=== PATIENT | male | born 1990 | race Hispanic/Latino ===

== ENCOUNTER 2020-01-21 13:08 | Emergency (ER) | payer MEDICARE ==
[~2020-01-21] VITALS: Ht 177.8 cm; Wt 88.5 kg
[2020-01-21] MEDS ORDERED: MORPHINE SULFATE 2 MG/ML SYR 1ML IV STA (13:14)
[2020-01-21] MEDS ORDERED: MORPHINE SULFATE INJ 4 MG/ML INJ 1ML ONE (13:38)
--- NOTE | 2020-01-21 14:20 | Diagnostic Imaging Report ---
CT of the abdomen and pelvis, without contrast. History: Right lower quadrant abdominal pain.. Comparison: None available. Technique: Multidetector CT scanning of the abdomen and pelvis was performed from the level of the lung bases to the inferior pubic rami without the use of contrast material. Coronal and sagittal multiplanar reformations were obtained. RADIATION DOSE: Total DLP: 636.47 mGy*cm Dose modulation, iterative reconstruction, and/or weight based adjustment of the mA/kV was utilized to reduce the radiation dose to as low as reasonably achievable. FINDINGS: The visualized intrathoracic contents are unremarkable. The liver is normal in size and attenuation on this noncontrast enhanced examination. The gallbladder is unremarkable. There is no biliary ductal dilatation. The stomach, spleen, pancreas, and bilateral adrenal glands are unremarkable. The kidneys are normal in size and location. There is no evidence for nephrolithiasis or hydronephrosis. There is a punctate calcification identified within the urinary bladder just distal to the right ureterovesicular junction may represent a recently passed stone (axial image 150, coronal image 67). No ureteral stone or significant ureteral dilatation is appreciated. The prostate is unremarkable. The abdominal aorta is normal course and caliber. The IVC is normal in caliber. Please note evaluation the bowel is limited without the use of enteric contrast material. The visualized loops of small and large bowel demonstrate no evidence of obstruction or inflammation. The appendix is not definitively visualized but there is no evidence of inflammation within its expected location the right lower quadrant. There is no ascites or intraperitoneal free air. No abnormally enlarged lymph nodes are identified within the abdomen or pelvis. The osseous structures demonstrate no evidence for acute fracture or destructive process. The extraperitoneal soft tissues are unremarkable. IMPRESSION: Punctate calcification identified within the urinary bladder just distal to the right ureterovesicular junction which may represent a recently passed stone. No evidence for obstructive uropathy. Signed by: Dr. Abraham Rudolph MD on 01/21/2020 2:17 PM
--- NOTE | 2020-01-21 14:35 | Emergency Department Note ---
History of Present Illnes History of Present Illness Chief Complaint: Abdominal Complaints History of Present Illness This is a 29 year old male Chief Complaint Comment Reports umbilical abd pain radiating to RLQ abd with n/v since early this morning when he woke up rates pain 8/10 and arrived via [facility]. Pt seems to be in mild distress. Historian: Employee Benefits Manager/EMS Arrival Mode: [facility] Treatment CATIA DESIGNER: IV Additional Treatment CATIA DESIGNER: 4mg zofran Onset (how long ago): day(s) (1) Location: R FLAK AND RLQ Quality: SHARP Radiation: Denies non-radiation, Denies back, Denies neck, Denies extremity, Denies abdomen, Denies periumbilical, Denies flank, Denies proximal, Denies distal, Denies other Severity: moderate Onset quality: gradual Duration (how long): day(s) (1) Timing of current episode: constant Progression: worsening Chronicity: new Context: Denies recent illness, Denies recent surgery, Denies recent immobilization, Denies recent travel, Denies trauma/injury, Denies new medications, Denies hx of DVT/PE, Denies non-compliance w/ medications, Denies other Relieving factors: none Exacerbating factors: none Associated symptoms: Denies denies other symptoms, Denies confusion, Denies chest pain, Denies cough, Denies diaphoresis, Denies fever/chills, Denies headaches, Denies loss of appetite, Denies malaise, Denies nausea/vomiting, Denies rash, Denies seizure, Denies shortness of breath, Denies syncope, Denies weakness, Denies other Treatments prior to arrival: none Past Medical/Family History Physician Review I have reviewed the patient's past medical and family history. Any updates have been documented here. Past Medical History Recent Fever: No Clinical Suspicion of Infectio: No New/Unexplained Change in Ment: No Past Medical History: None Past Surgical History: None Social History Smoking Cessation: Current every day smoker Counseling Performed: Yes Alcohol Use: Occasional Any Illegal Drug Use: No TB Exposure/Symptoms: No Physically hurt or threatened: No Family History Family history of heart diseas: No Other Any Pre-Existing Lines (PICC,: No Is patient up to date on immun: Yes Last Flu: UTD Last Pneumovax: none Review of Systems Review of Systems Constitutional: Reports no symptoms EENTM: Reports no symptoms Cardiovascular: Reports no symptoms Respiratory: Reports no symptoms Gastrointestinal: Reports as per HPI Genitourinary: Reports no symptoms Musculoskeletal: Reports no symptoms Integumentary: Reports no symptoms Neurological: Reports no symptoms Psychological: Reports no symptoms Endocrine: Reports no symptoms Hematological/Lymphatic: Reports no symptoms Physical Exam Related Data Allergies: Coded Allergies: No Known Allergies (Unverified , 01/21/20) Triage Vital Signs Vital Signs Date Time Temp Pulse Resp B/P (MAP) Pulse Ox O2 Delivery O2 Flow Rate FiO2 01/21/20 13:08 98.4 63 16 148/83 100 Vital signs reviewed: Yes Physical Exam CONSTITUTIONAL Constitutional: Present well-developed, Present well-nourished HENT HENT: Present normocephalic, Present atraumatic, Present oropharynx clear/moist, Present nose normal HENT L/R: Present left ext ear normal, Present right ext ear normal EYES Eyes: Reports PERRL, Reports conjunctivae normal NECK Neck: Present ROM normal PULMONARY Pulmonary: Present effort normal, Present breath sounds normal CARDIOVASCULAR Cardiovascular: Present regular rhythm, Present heart sounds normal, Present capillary refill normal, Present normal rate GASTROINTESTINAL Abdominal: Present soft, Present bowel sounds normal, Present tender (RLQ AND R FLANK) GENITOURINARY Genitourinary: Present exam deferred SKIN Skin: Present warm, Present dry MUSCULOSKELETAL Musculoskeletal: Present ROM normal NEUROLOGICAL Neurological: Present alert, Present oriented x 3, Present no gross motor or sensory deficits PSYCHOLOGICAL Psychological: Present mood/affect normal, Present judgement normal Results Laboratory Lab results reviewed: Yes Imaging Imaging results reviewed: Yes Assessment & Plan Medical Decision Making MDM KIDNEY STONE APPENDICITIS Reassessment Reassessment time: 14:33 Reassessment BETTER Assessment & Plan Final Impression: (1) Abdominal pain, right lower quadrant (2) Renal colic Depart Disposition: HOME, SELF-CARE Last Vital Signs Date Time Temp Pulse Resp B/P (MAP) Pulse Ox O2 Delivery O2 Flow Rate FiO2 01/21/20 13:08 98.4 63 16 148/83 100 Medications in the ED Morphine Sulfate 2 mg NOW STAT IV Last administered on 01/21/20at 13:35; Admin Dose 2 MG; Start 01/21/20 at 13:14; Stop 01/21/20 at 13:28; Status DC Morphine Sulfate 4 mg STK-MED ONCE .ROUTE ; Start 01/21/20 at 13:38; Stop 01/21/20 at 13:32; Status DC TRA RAUSCH MD Jan 21, 2020 14:35
[2020-01-21 14:37] VITALS: BP 122/69
== END 2020-01-21 14:54 | disposition home or self-care (01) ==
LOC: FSED 13:38
DX: N23 Unspecified renal colic (principal); R11.2 Nausea with vomiting, unspecified; M54.5 Low back pain; F17.210 Nicotine dependence, cigarettes, uncomplicated
CPT/HCPCS: 74176; 80048; 80076; 81003; 85025; 96374; 99284; J2270 ×2

== ENCOUNTER 2020-05-28 22:23 | Emergency (ER) | payer OTHER ==
[~2020-05-28] VITALS: Ht 177.8 cm; Wt 88.5 kg
[2020-05-28] MEDS ORDERED: DIPHENHYDRAMINE HCL 25 MG CAP PO ONE (22:45)
[2020-05-28] MEDS ORDERED: DIPHENHYDRAMINE HCL 25 MG CAP ONE (22:50)
== END 2020-05-28 23:23 | disposition home or self-care (01) ==
LOC: ER 23:01
DX: R20.0 Anesthesia of skin (principal); F17.210 Nicotine dependence, cigarettes, uncomplicated
CPT/HCPCS: 99282

== ENCOUNTER 2022-02-09 01:48 | Emergency (ER) | payer OTHER ==
[~2022-02-09] VITALS: Ht 175.3 cm; Wt 113.4 kg
[2022-02-09] MEDS ORDERED: HYDROCODONE/APAP 5MG-325MG TAB PO ONE (06:00)
[2022-02-09] MEDS ORDERED: HYDROCODON-ACE1 EA12 PO (06:41)
[2022-02-09] MEDS ORDERED: AMOXICILLIN500 M1 PO (06:49)
== END 2022-02-09 03:00 | disposition home or self-care (01) ==
LOC: FSED 02:11
DX: K08.89 Other specified disorders of teeth and supporting structures (principal); I10 Essential (primary) hypertension
CPT/HCPCS: 99283

== ENCOUNTER 2022-05-08 14:48 | Emergency (ER) | payer OTHER ==
[~2022-05-08] VITALS: Ht 177.8 cm; Wt 94.0 kg
[~2022-05-08 14:48] MED LIST: AMOXICILLIN500 M1 PO; HYDROCODON-ACE1 EA12 PO
[2022-05-08] MEDS ORDERED: ULTRAM50 MG PO (15:28)
[2022-05-08] MEDS ORDERED: ACETAMINOPHEN500 MG PO (15:28)
[2022-05-08] MEDS ORDERED: HYDROCODONE/APAP 5MG-325MG TAB PO ONE (15:30)
[2022-05-08] MEDS ORDERED: ONDANSETRON HCL 4 MG ORAL DISINTEGRATING TAB PO ONE (15:30)
== END 2022-05-08 15:56 | disposition home or self-care (01) ==
LOC: FSED 15:20
DX: S62.316A Displaced fracture of base of fifth metacarpal bone, right hand, initial encounter for closed fracture (principal); W21.89XA Striking against or struck by other sports equipment, initial encounter; Y93.A9 Activity, other involving cardiorespiratory exercise; Y92.89 Other specified places as the place of occurrence of the external cause; I10 Essential (primary) hypertension; N28.9 Disorder of kidney and ureter, unspecified
CPT/HCPCS: 29125; 73130; 99284; Q0162

== ENCOUNTER 2024-05-31 11:35 | Emergency (ER) | payer OTHER ==
[~2024-05-31] VITALS: Ht 175.3 cm; Wt 105.9 kg
[~2024-05-31 11:35] MED LIST changes: +ACETAMINOPHEN500 MG PO; +ASPIRIN81 MG PO; +DILTIAZEM 24HR120 M1 PO; +ULTRAM50 MG PO
[2024-05-31] MEDS: FLUORESCEIN SOD(OPTH) 1 MG STRP OP ONE (12:22)
[2024-05-31] MEDS: TETRACAINE HCL 0.5% OPTH SOLN 4 ML BTL OP ONE (12:22)
[2024-05-31] MEDS: ERYTHROMYCIN (OPTH) 3.5 GM OINT OP ONE (12:43)
[2024-05-31 12:53] VITALS: PULSE 85; RESP 16; TEMP 98.3; O2SAT 97
== END 2024-05-31 12:53 | disposition home or self-care (01) ==
LOC: FSED 11:38
DX: H57.12 Ocular pain, left eye (principal); H16.002 Unspecified corneal ulcer, left eye; S05.02XA Injury of conjunctiva and corneal abrasion without foreign body, left eye, initial encounter; I10 Essential (primary) hypertension; E78.5 Hyperlipidemia, unspecified
CPT/HCPCS: 99284

== ENCOUNTER 2024-09-05 11:04 | Emergency (ER) | payer OTHER ==
[~2024-09-05] VITALS: Ht 175.3 cm; Wt 108.2 kg
[2024-09-05 11:22] VITALS: TEMP 97.8
[2024-09-05 15:42] VITALS: PULSE 58; RESP 15; O2SAT 98
== END 2024-09-05 15:46 | disposition home or self-care (01) ==
LOC: FSED 11:24
DX: R07.89 Other chest pain (principal); I12.9 Hypertensive chronic kidney disease with stage 1 through stage 4 chronic kidney disease, or unspecified chronic kidney disease; N18.9 Chronic kidney disease, unspecified; E78.5 Hyperlipidemia, unspecified; I48.91 Unspecified atrial fibrillation; R94.31 Abnormal electrocardiogram [ECG] [EKG]
CPT/HCPCS: 71046; 80048; 82553; 84484; 85025; 93005; 99284

== ENCOUNTER 2024-10-07 08:27 | Emergency (ER) | payer OTHER ==
[~2024-10-07] VITALS: Ht 175.3 cm; Wt 109.5 kg
[2024-10-07] MEDS ORDERED: KETOROLAC TROMETHAMINE 30 MG/ML VIAL ONE (08:55)
[2024-10-07] MEDS: FAMOTIDINE 20 MG/2 ML VIAL IV ONE (09:09)
[2024-10-07] MEDS: LACTATED RINGER'S 1,000 ML INJ ONE (09:09)
[2024-10-07] MEDS: ONDANSETRON HCL INJ 2MG/ML 2ML 2 MG/ML VIAL IV ONE (09:09)
[2024-10-07] MEDS: KETOROLAC TROMETHAMINE 30 MG/ML VIAL IV ONE (09:10)
[2024-10-07] MEDS ORDERED: IOPAMIDOL 370 MG/ML 100 ML INFUS..BTL INJ ONE (09:16)
[2024-10-07 10:32] VITALS: PULSE 65; RESP 16; TEMP 97.7; O2SAT 97
[2024-10-07] MEDS ORDERED: ONDANSETRON ODT4 MG PO (10:43)
[2024-10-07] MEDS ORDERED: OMEPRAZOLE40 MG PO (10:43)
== END 2024-10-07 10:51 | disposition home or self-care (01) ==
LOC: FSED 08:32
DX: R10.11 Right upper quadrant pain (principal); I10 Essential (primary) hypertension; I48.91 Unspecified atrial fibrillation; E78.5 Hyperlipidemia, unspecified; N28.9 Disorder of kidney and ureter, unspecified; K21.9 Gastro-esophageal reflux disease without esophagitis; F41.9 Anxiety disorder, unspecified
CPT/HCPCS: 74176; 80048; 80076; 80307; 81003; 85025; 96374; 96375; 99284; J1885; J2405; J7121; Q9967

== ENCOUNTER 2025-01-20 16:50 | Emergency (ER) | payer SELFPAY ==
[~2025-01-20] VITALS: Ht 175.3 cm; Wt 102.5 kg
[~2025-01-20 16:50] MED LIST changes: +OMEPRAZOLE40 MG PO; +ONDANSETRON ODT4 MG PO
[2025-01-20 16:55] VITALS: PULSE 70; RESP 18; TEMP 97.4
[2025-01-20] MEDS: SODIUM CHLORIDE 0.9% 1000ML 2,000 ML IV STA (17:36)
[2025-01-20] MEDS ORDERED: SODIUM CHLORIDE 0.9% 1000ML 1,000 ML ONE (18:30)
[2025-01-20 19:49] VITALS: BP 157/92; PULSE 63; RESP 18; TEMP 98.4; O2SAT 98
== END 2025-01-20 19:45 | disposition home or self-care (01) ==
LOC: FSED 17:04
DX: E86.0 Dehydration (principal); I12.9 Hypertensive chronic kidney disease with stage 1 through stage 4 chronic kidney disease, or unspecified chronic kidney disease; E11.22 Type 2 diabetes mellitus with diabetic chronic kidney disease; N18.9 Chronic kidney disease, unspecified; E78.5 Hyperlipidemia, unspecified; I48.91 Unspecified atrial fibrillation; K21.9 Gastro-esophageal reflux disease without esophagitis; F41.9 Anxiety disorder, unspecified
CPT/HCPCS: 80048; 80307; 81003; 84484; 85025; 99283; J7030; 93005

== ENCOUNTER 2025-05-19 17:29 | Emergency (ER) | payer SELFPAY ==
[~2025-05-19] VITALS: Ht 175.3 cm; Wt 102.7 kg
[2025-05-19 17:40] VITALS: PULSE 61; RESP 16; TEMP 98; O2SAT 99
== END 2025-05-19 18:06 | disposition home or self-care (01) ==
LOC: FSED 17:32
DX: M54.50 Low back pain, unspecified (principal); R10.10 Upper abdominal pain, unspecified; X50.1XXA Overexertion from prolonged static or awkward postures, initial encounter; R30.0 Dysuria; I12.9 Hypertensive chronic kidney disease with stage 1 through stage 4 chronic kidney disease, or unspecified chronic kidney disease; E11.22 Type 2 diabetes mellitus with diabetic chronic kidney disease; N18.9 Chronic kidney disease, unspecified; I48.91 Unspecified atrial fibrillation; E78.5 Hyperlipidemia, unspecified; K21.9 Gastro-esophageal reflux disease without esophagitis; F41.9 Anxiety disorder, unspecified
CPT/HCPCS: 81003; 99283